=== PATIENT | male | born 1985 | race Hispanic/Latino ===

== ENCOUNTER 2022-06-05 15:44 | Emergency (ER) | payer OTHER ==
[~2022-06-05] VITALS: Ht 170.2 cm; Wt 89.8 kg
[2022-06-05] MEDS ORDERED: MUPIROCIN 2% OINT 22 GM TUBE TOP ONE (16:30)
== END 2022-06-05 18:55 | disposition home or self-care (01) ==
LOC: ER 15:53
DX: T25.221A Burn of second degree of right foot, initial encounter (principal); X12.XXXA Contact with other hot fluids, initial encounter; Y92.89 Other specified places as the place of occurrence of the external cause; F17.210 Nicotine dependence, cigarettes, uncomplicated
CPT/HCPCS: 99282